=== PATIENT | male | born 1965 | race Caucasian/White ===

== ENCOUNTER 2016-10-16 05:29 | Day surgery (SDC) | payer BC ==
[~2016-10-16 05:29] MED LIST: ALBUTEROL17 GM INH; ALTACE PO; ALTACE10 MG PO; AMLOD-VALSA-HC1 EAC4 PO; ANUSOL HC25 MG/SUP1 PR; APIDRA100 U/M; APIDRA100 U/M SQ; ASPIRIN81 M1 PO; ATIVAN1 M2 PO; ATIVAN1 MG PO; CIPRO500 M2 PO; CLEOCIN150 MG/CAP PO; COLACE100 M1 PO; DAZIDOX10 MG PO; EXFORGE 10-1601 TAB PO; EXFORGE 10-3201 TAB; Exforge PO; FLAGYL500 M1 PO; FUROSEMIDE20 MG; FUROSEMIDE20 MG PO; GLEEVAC PO; GLEEVEC PO; GLUCOPHAGE1000 MG PO; Gleevec PO; HUMALOG100 U/ML SQ; HUMULIN R100 UNITS/; HYDROCODONE/APA1 CAP; IMODIUM2 MG PO; KEFLEX500 MG; LAMICTAL25 M2 PO; LAMOTRIGINE PO; LANTUS100 U/ML; LANTUS100 U/ML SC; LANTUS100 UNITS/ SC; LASIX40 M1 PO; LASIX80 M1 PO; LEVAQUIN500 MG PO; LEVAQUIN750 MG PO; LORAZEPAM PO; METFORMIN HCL500 MG; MULTIVITAMIN1 TAB; NORCO 10/3251 TA1 PO; NORCO 5/3251 TA1 PO; NOVOLIN N100 U/ML; NOVOLIN R; NOVOLIN R100 U/ML; NOVOLOG MI100 UNITS/; OXYBUTYNIN CHLOR5 M2 PO; OXYCODONE/APAP PO; OXYIR5 MG PO; PAXIL40 M1 PO; PERCOCET 10-321 EACH PO; PERCOCET 10/31 UDTAB PO; PERCOCET 5-3251 EACH PO; PERCOCET 5MG/AP1 TA1 PO; PERCOCET 5MG/AP1 TA2 PO; PRILOSEC OTC20 MG; PROBIOTIC1 EAC4 PO; PROBIOTIC1 EACH PO; PROMETHAZINE25 MG PO; PROZAC20 M1 PO; PROZAC20 M3 PO; PROZAC40 MG PO; TERAZOSIN HCL5 MG PO; TESTOSTERON200 MG/ML IM; TESTOSTERONE IM/SC; TRAMADOL HCL50 MG PO; TYLENOL500 MG PO; VITAMIN D400 UNIT PO; VITAMIN D50000 UNI1 PO; WELLBUTRIN SR150 M2 PO; ZESTRIL5 MG PO; ZITHROMAX250 MG PO; [UNRECOGNIZED DRUG - OTHER]
[2016-10-16 06:29] LABS: BASO ABSOLUTE COUNT 0.1 tho/cmm (0.0-0.2); EOS % 4.3 % (0-7); EOSINOPHIL ABSOLUTE COUNT 0.3 tho/cmm (0.0-0.7); HCT-HEMATOCRIT 38.3 % (36.0-53.5); HGB-HEMOGLOBIN 12.8 gm/dl (13.5-17.0); IMMATURE GRANULOCYTES ABSOLUTE 0.02 tho/cmm (0-0.03); IMMATURE GRANULOCYTES PERCENT 0.3 % (0-0.3); MCH (MEAN CORPUSCULAR HGB) 29.8 pg (28.0-32.0); MCHC MEAN CORPUSCULAR HGB CONC 33.4 % (32.0-36.0); MCV (MEAN CELL VOLUME) 89.3 fl (82.0-96.0); MEAN PLATELET VOLUME 9.9 cmc (9.4-12.4); MONO % 8.8 % (0-12); MONOCYTE ABSOLUTE COUNT 0.7 tho/cmm (0.0-1.2); NEUTROPHIL ABSOLUTE COUNT 4.8 tho/cmm (1.6-8.0); NEUTROPHIL-AUTOMATED 4.8 tho/cmm (1.6-8.0); NEUTROPHILS % 60.6 % (40-80); PLATELET COUNT 296 tho/cmm (150-450); RED BLOOD COUNT 4.29 mil/cmm (4.40-5.70); RED CELL DISTRIBUTION WIDTH 15.5 % (12.4-16.4)
[2016-10-16 06:36] LABS: ANION GAP 12 mmol/L (0-20); BLOOD UREA NITROGEN 12 mg/dl (6-24); CALCIUM 8.5 mg/dl (8.5-10.5); CARBON DIOXIDE-VENOUS 28 mmol/L (22-32); CHLORIDE 102 mmol/l (96-110); GLUCOSE 161 mg/dL (70-110); POTASSIUM 3.8 mmol/L (3.7-5.1); SODIUM 138 mmol/L (135-145); eGFR VALUE FOR BLACK >90 mL/Min
[2016-11-19] MEDS ORDERED: IMODIUM A-D2 M3 PO (10:54)
[2016-11-19] MEDS ORDERED: [UNRECOGNIZED DRUG - REMARK] (10:55)
== END 2016-10-16 09:55 ==
LOC: SRG 05:29 → SHSB 05:30
PROVIDERS: Anesthesiology
PROC: 0JB80ZZ Excision of Abdomen Subcutaneous Tissue and Fascia, Open Approach (ICD-10-PCS; principal; 2016-10-16)
DX: T81.32XD Disruption of internal operation (surgical) wound, not elsewhere classified, subsequent encounter (principal); I10 Essential (primary) hypertension; E66.01 Morbid (severe) obesity due to excess calories; M19.049 Primary osteoarthritis, unspecified hand; R51 Headache; E11.9 Type 2 diabetes mellitus without complications; F41.9 Anxiety disorder, unspecified; F32.9 Major depressive disorder, single episode, unspecified; J44.9 Chronic obstructive pulmonary disease, unspecified; N40.0 Benign prostatic hyperplasia without lower urinary tract symptoms; F17.210 Nicotine dependence, cigarettes, uncomplicated; G47.30 Sleep apnea, unspecified; Z79.4 Long term (current) use of insulin; Z79.82 Long term (current) use of aspirin; Z79.899 Other long term (current) drug therapy; Z88.0 Allergy status to penicillin; Z88.5 Allergy status to narcotic agent; Z90.49 Acquired absence of other specified parts of digestive tract; Z90.89 Acquired absence of other organs; Z98.890 Other specified postprocedural states
CPT/HCPCS: J1956

== ENCOUNTER 2016-11-20 08:10 | Day surgery (SDC) | payer BC ==
[~2016-11-20 08:10] MED LIST changes: +IMODIUM A-D2 M3 PO; +[UNRECOGNIZED DRUG - REMARK]
[2016-11-20 08:55] LABS: BASO % 0.9 % (0-2); BASO ABSOLUTE COUNT 0.1 tho/cmm (0.0-0.2); EOS % 3.3 % (0-7); EOSINOPHIL ABSOLUTE COUNT 0.3 tho/cmm (0.0-0.7); HCT-HEMATOCRIT 40.7 % (36.0-53.5); HGB-HEMOGLOBIN 14.2 gm/dl (13.5-17.0); IMMATURE GRANULOCYTES ABSOLUTE 0.03 tho/cmm (0-0.03); IMMATURE GRANULOCYTES PERCENT 0.3 % (0-0.3); LYMPH % 20.3 % (20-45); LYMPH ABSOLUTE COUNT 2.1 tho/cmm (0.8-4.5); MCH (MEAN CORPUSCULAR HGB) 30.3 pg (28.0-32.0); MCHC MEAN CORPUSCULAR HGB CONC 34.9 % (32.0-36.0); MCV (MEAN CELL VOLUME) 86.8 fl (82.0-96.0); MEAN PLATELET VOLUME 10.2 cmc (9.4-12.4); MONO % 6.6 % (0-12); MONOCYTE ABSOLUTE COUNT 0.7 tho/cmm (0.0-1.2); NEUTROPHILS % 68.6 % (40-80); PLATELET COUNT 315 tho/cmm (150-450); RED BLOOD COUNT 4.69 mil/cmm (4.40-5.70); RED CELL DISTRIBUTION WIDTH 15.8 % (12.4-16.4); WHITE BLOOD COUNT 10.3 tho/cmm (4.0-10.0)
[2016-11-20 09:10] LABS: ANION GAP 11 mmol/L (0-20); BLOOD UREA NITROGEN 17 mg/dl (6-24); CALCIUM 8.6 mg/dl (8.5-10.5); CARBON DIOXIDE-VENOUS 28 mmol/L (22-32); CHLORIDE 102 mmol/l (96-110); CREATININE 0.86 mg/dl (0.60-1.30); GLUCOSE 195 mg/dL (70-110); POTASSIUM 3.8 mmol/L (3.7-5.1); SODIUM 137 mmol/L (135-145); eGFR VALUE FOR BLACK >90 mL/Min
== END 2016-11-20 12:30 ==
LOC: SRG 08:10 → SHSC 08:13 → ORW 10:45 → SHSC 11:35
PROVIDERS: Anesthesiology
PROC: 0JB80ZZ Excision of Abdomen Subcutaneous Tissue and Fascia, Open Approach (ICD-10-PCS; principal; 2016-11-20)
DX: K91.872 Postprocedural seroma of a digestive system organ or structure following a digestive system procedure (principal); I10 Essential (primary) hypertension; E66.01 Morbid (severe) obesity due to excess calories; M19.90 Unspecified osteoarthritis, unspecified site; E11.9 Type 2 diabetes mellitus without complications; F41.9 Anxiety disorder, unspecified; F32.9 Major depressive disorder, single episode, unspecified; J44.9 Chronic obstructive pulmonary disease, unspecified; G47.30 Sleep apnea, unspecified; K21.9 Gastro-esophageal reflux disease without esophagitis; N40.0 Benign prostatic hyperplasia without lower urinary tract symptoms; F17.210 Nicotine dependence, cigarettes, uncomplicated; Z79.4 Long term (current) use of insulin; Z79.82 Long term (current) use of aspirin; Z79.899 Other long term (current) drug therapy; Z88.0 Allergy status to penicillin; Z88.5 Allergy status to narcotic agent; Z90.49 Acquired absence of other specified parts of digestive tract; Z90.89 Acquired absence of other organs; Z98.890 Other specified postprocedural states; Y83.8 Other surgical procedures as the cause of abnormal reaction of the patient, or of later complication, without mention of misadventure at the time of the procedure
CPT/HCPCS: J1956